=== PATIENT | female | born 1945 | race Caucasian/White ===

== ENCOUNTER 2020-08-06 13:33 | Inpatient (IN) | payer MEDICARE, MEDICAID ==
[~2020-08-06] VITALS: Ht 193 cm; Wt 109.0 kg
[~2020-08-06 13:33] MED LIST: AMLO10TA13 PO; ASPI-611 PO; CLOP75TA15 PO; HYDR-3973 PO; HYDR25TA4 PO; LOSA50TA64 PO; METO-395 PO; PRAV40TA3 PO
[2020-08-06 14:20] LABS: BASOPHILS % (AUTO) 0.4 % (0-1); EOSINOPHILS % (AUTO) 0.4 % (0-6); HEMATOCRIT 34.3 % (35.0-45.0); HEMOGLOBIN 11.5 g/dl (12.0-16.0); LYMPHOCYTES # (AUTO) 1.2 X10'3 (1.1-4.8); MEAN CORPUSCULAR HEMOGLOBIN 30.1 PG (27.0-31.0); MEAN CORPUSCULAR HGB CONC 33.5 g/dL (33.0-36.5); MEAN PLATELET VOLUME 9.7 FL (7.4-10.4); MONOCYTES # (AUTO) 0.7 X10'3 (0-0.9); MONOCYTES % (AUTO) 7.4 % (2-12); NEUTROPHILS # (AUTO) 7.3 X10'3 (1.8-7.7); NEUTROPHILS % (AUTO) 78.8 % (42-75); PLATELET COUNT 203 X10'3 (140-440); RED BLOOD COUNT 3.81 X10'6 (4.20-5.60); RED CELL DISTRIBUTION WIDTH 13.7 % (11.5-14.5); WHITE BLOOD COUNT 9.3 X10'3 (4.5-11.0)
[2020-08-06] MEDS ORDERED: aspirin 81mg tab.chew PO ONE (14:45)
[2020-08-06] MEDS ORDERED: nitroGLYCERIN 0.4mg/hour patch TD ONE (14:45)
[2020-08-06 14:47] LABS: ALANINE AMINOTRANSFERASE 22 U/L (12-78); ALBUMIN 3.7 G/DL (3.4-5.0); ALBUMIN/GLOBULIN RATIO 0.8 (1.1-1.5); ALKALINE PHOSPHATASE 62 IU/L (46-116); ANION GAP 14 (8-16); ASPARTATE AMINO TRANSFERASE 31 U/L (10-37); BILIRUBIN,TOTAL 0.7 MG/DL (0.1-1.0); BLOOD UREA NITROGEN 50 MG/DL (7-18); BUN/CREATININE RATIO 25.5 (6.6-38.0); CHLORIDE 99 MMOL/L (99-107); CREATININE 1.96 MG/DL (0.40-0.90); GLUCOSE 129 MG/DL (70-104); POTASSIUM 3.5 MMOL/L (3.5-5.1); SODIUM 135 MMOL/L (135-145); TOTAL CARBON DIOXIDE 22.3 MMOL/L (24-32); TOTAL PROTEIN 8.2 G/DL (6.4-8.2); eGFR 25 ML/MIN
--- NOTE | 2020-08-06 15:36 | NUR ---
Pt up to 6L/NC, SpO2 89-90. aware. RT paged
[2020-08-06] MEDS ORDERED: OMEP40CA13 PO (15:52)
--- NOTE | 2020-08-06 16:10 | NUR ---
RT at bedside
[2020-08-06] MEDS ORDERED: heparin 25,000 UNIT/250ml bag 250 ML IV SCH (16:25)
[2020-08-06] MEDS ORDERED: heparin 10,000 units/1 ML INJ IV ONE (16:25)
[2020-08-06] MEDS ORDERED: heparin 10,000 units/1 ML INJ IV PRN (16:25)
[2020-08-06 16:26] LABS: ABG BASE EXCESS -4.8 mmol/L (-2.0-2.0); ABG HCO3 18.5 mmol/L (22.0-26.0); ABG OXYGEN SATURATION 88.8 % (94-97); ABG PCO2 (T) 29.4 mmHg (32.0-45.0); ABG PO2 (T) 56.7 mmHg (75.0-100.0); ALLEN'S TEST POSITIVE; FCOHb 0.4 % (0.0-3.9); FLOW 6 L/min; FMetHb 0.3 % (0.0-1.5); FO2Hb 88.2 % (94-97)
[2020-08-06 17:14] LABS: BASOPHILS # (AUTO) 0.1 X10'3 (0-0.2); BASOPHILS % (AUTO) 0.5 % (0-1); EOSINOPHILS % (AUTO) 0.2 % (0-6); HEMATOCRIT 37.4 % (35.0-45.0); HEMOGLOBIN 12.4 g/dl (12.0-16.0); LYMPHOCYTES # (AUTO) 1.3 X10'3 (1.1-4.8); LYMPHOCYTES % (AUTO) 11.1 % (21-51); MEAN CORPUSCULAR HEMOGLOBIN 29.7 PG (27.0-31.0); MEAN CORPUSCULAR HGB CONC 33.1 g/dL (33.0-36.5); MEAN PLATELET VOLUME 9.6 FL (7.4-10.4); MONOCYTES # (AUTO) 0.8 X10'3 (0-0.9); MONOCYTES % (AUTO) 6.9 % (2-12); NEUTROPHILS # (AUTO) 9.8 X10'3 (1.8-7.7); NEUTROPHILS % (AUTO) 81.3 % (42-75); PLATELET COUNT 216 X10'3 (140-440); RED BLOOD COUNT 4.16 X10'6 (4.20-5.60); RED CELL DISTRIBUTION WIDTH 13.9 % (11.5-14.5); WHITE BLOOD COUNT 12.1 X10'3 (4.5-11.0)
[2020-08-06] MEDS ORDERED: bisacodyl 10mg suppository rectal RC PRN (17:25)
[2020-08-06] MEDS ORDERED: potassium CL 10mEq/100ml bag 100 ML IV PRN ×2 (17:25)
[2020-08-06] MEDS ORDERED: diphenhydrAMINE 25mg capsule PO PRN (17:25)
[2020-08-06] MEDS ORDERED: magnesium hydroxide 30ml (MOM) UD suspension PO PRN (17:25)
[2020-08-06] MEDS ORDERED: potassium Cl 20 mEq SR tablet PO PRN ×2 (17:25)
[2020-08-06] MEDS ORDERED: normal saline 1000ml 1,000 ML IV SCH (17:25)
[2020-08-06] MEDS ORDERED: magnesium 2GM in 50ml NS 50 ML IV PRN (17:25)
[2020-08-06] MEDS ORDERED: magnesium 4gm in 100ml NS 100 ML IV PRN (17:25)
[2020-08-06] MEDS ORDERED: magnesium Cl slow-release 64mg tablet PO PRN (17:25)
[2020-08-06] MEDS ORDERED: HYDROcodone/acetaminophen 5mg/325mg tablet PO PRN (17:25)
[2020-08-06] MEDS ORDERED: HYDROcodone/acetaminophen 10/325mg tab PO PRN (17:25)
[2020-08-06] MEDS ORDERED: ondansetron/PF 4mg/2ml inj IV PRN (17:25)
[2020-08-06] MEDS ORDERED: morphine 2 MG/ML inj. syringe IV PRN ×2 (17:25)
[2020-08-06] MEDS ORDERED: acetaminophen 650mg rectal suppository RC PRN (17:25)
[2020-08-06] MEDS ORDERED: mag hydrox/Alum hydrox/simeth 30ml oral suspension PO PRN (17:25)
[2020-08-06] MEDS ORDERED: acetaminophen 325mg tablet PO PRN ×2 (17:25)
--- NOTE | 2020-08-06 17:33 | NUR ---
This RN to lunch, report to Nataliya GARCIA
[2020-08-06 17:36] LABS: PARTIAL THROMBOPLASTIN TIME 23 SECONDS (22-32)
--- NOTE | 2020-08-06 18:30 | NUR ---
DR GARCIA AT BEDSIDE, PATIENT DIAPHORETIC, STATES INCREASE IN SHORTNESS OF BREATH, BILATERAL AUDIBLE CRACKLES, PATIENT RESTLESS, STATES SHE "CAN NOT BREATH", MOTTLED SKIN NOTED TO ABDOMEN, DR SUAREZ AWARE AND AT BEDSIDE, MD ORDERS OBTAINED FOR LASIX (SEE EMAR).
[2020-08-06] MEDS ORDERED: potassium Cl 20 mEq SR tablet PO STA (18:42)
[2020-08-06] MEDS ORDERED: furosemide 10 MG/1 ML 10ml inj IV ONE (18:45)
[2020-08-06 18:51] VITALS: BP 82/52
--- NOTE | 2020-08-06 19:20 | NUR ---
1855: please refer to code blue sheet for documentation 1920: Dr Stein on phone with family.
--- NOTE | 2020-08-06 19:39 | NUR ---
family had sent rizvi and a radha bear, they were received just as we were coding her. We have since placed the Radha Bear into her arms to let her know that she is not alone.
[2020-08-06] MEDS ORDERED: K and/or MAG REPLACEMENT MC SCH (20:00)
--- NOTE | 2020-08-06 20:00 | NUR ---
Called Carola, the daughter. She is going to call back with the home of choice.
--- NOTE | 2020-08-06 23:01 | NUR ---
CALLED FAMILY BACK, NEED A NEW HOME BECAUSE DESPITE LEAVING MESSAGES AT [facility] AND [facility] OFFICE, NO ONE CALLS ME BACK AND IT ONLY GOES TO VOICEMAIL. I HAVE LEFT MESSAGES TO BOTH OFFICES.
--- NOTE | 2020-08-06 23:47 | NUR ---
Grand daughter Amanda called back and she was able to call a different home and got an answering service that said they are able to dispatch it out to [place]. I was able to get that phone number from Amanda. I called [phone] and gave them the information, she will dispatch it out to come and get Mrs. Reeder. I visited with the granddaughter. She states that her grand mother was the best Grandmother ever. Talked about how she'd get every one hot cocoa. Family is grieving. Informed the grand daughter that we held back the pink radha bear. That we have it with her, that it was important for us to have her have it. She understood and took the gesture as of kindness and said she would pass it on to her family that we did this act of kindness.
--- NOTE | 2020-08-07 01:19 | NUR ---
I called dispatch again, she told me that she was next to get picked up.
[2020-08-07] MEDS ORDERED: HYDROchlorothiazide 25mg tablet PO SCH (08:00)
[2020-08-07] MEDS ORDERED: losartan 50mg tablet PO SCH (08:00)
[2020-08-07] MEDS ORDERED: metoprolol succinate 25mg (24-HOUR) SR. Tablet PO SCH (08:00)
[2020-08-07] MEDS ORDERED: aspirin 81mg tab.chew PO SCH (08:00)
[2020-08-07] MEDS ORDERED: clopidogrel 75mg tablet PO SCH (08:00)
[2020-08-07] MEDS ORDERED: pravastatin 40mg tablet PO SCH (08:00)
[2020-08-07] MEDS ORDERED: amLODIPine 5mg tablet PO SCH (08:00)
[2020-08-07] MEDS ORDERED: pantoprazole 40mg Tablet.DR PO SCH (08:00)
== END 2020-08-06 19:40 | disposition expired ==
LOC: ER 13:33 → ED HOLD 17:23
PROVIDERS: ADMIT Family Medicine; ATTEND Family Medicine
PROC: 0BH17EZ Insertion of Endotracheal Airway into Trachea, Via Natural or Artificial Opening (ICD-10-PCS; principal; 2020-08-06)
PROC: 5A12012 Performance of Cardiac Output, Single, Manual (ICD-10-PCS; 2020-08-06)
DX: I21.4 Non-ST elevation (NSTEMI) myocardial infarction (principal); J81.0 Acute pulmonary edema; N17.9 Acute kidney failure, unspecified; I44.1 Atrioventricular block, second degree; R06.03 Acute respiratory distress; E78.00 Pure hypercholesterolemia, unspecified; E78.5 Hyperlipidemia, unspecified; I10 Essential (primary) hypertension; I25.10 Atherosclerotic heart disease of native coronary artery without angina pectoris; I46.9 Cardiac arrest, cause unspecified; K21.9 Gastro-esophageal reflux disease without esophagitis; G89.29 Other chronic pain; M19.90 Unspecified osteoarthritis, unspecified site; Z20.828 Contact with and (suspected) exposure to other viral communicable diseases; Z83.1 Family history of other infectious and parasitic diseases; Z85.828 Personal history of other malignant neoplasm of skin; Z86.73 Personal history of transient ischemic attack (TIA), and cerebral infarction without residual deficits; Z90.710 Acquired absence of both cervix and uterus; Z88.2 Allergy status to sulfonamides; Z88.8 Allergy status to other drugs, medicaments and biological substances; Z87.891 Personal history of nicotine dependence
CPT/HCPCS: 31500; 36415; 36600; 71045; 80053; 81003; 82803; 83036; 83880; 84484; 85018; 85025; 85610; 85730; 87635; 93005; 96374; 99291; C9803; G0378; J1644